=== PATIENT | female | born 1975 | race Caucasian/White ===

== ENCOUNTER 2018-06-26 13:47 | Observation (INO) | payer OTHER ==
[~2018-06-26] VITALS: Ht 160 cm; Wt 96.0 kg
[2018-06-26 15:28] VITALS: BP 135/72; PULSE 71; TEMP 98.5
[2018-06-26 19:30] VITALS: BP 129/74; PULSE 72; TEMP 98.4
[2018-06-27] VITALS (12 sets, daily range): BP systolic 104–127; BP diastolic 58–76; PULSE 58–74; TEMP 98–98.4
[2018-06-27] MEDS ORDERED: PYRIDIUM 100MG100 MG PO (11:24)
== END 2018-06-27 13:40 | disposition home or self-care (01) ==
LOC: SURG 13:47
DX: N20.1 Calculus of ureter (principal); Z87.442 Personal history of urinary calculi; Z88.2 Allergy status to sulfonamides
CPT/HCPCS: C1769; C2617; G0378; J0690; J1100; J1885; J2270; J2405; J2550; J2704; J3010; J7030